=== PATIENT | male | born 1975 | race Caucasian/White ===

== ENCOUNTER 2017-02-19 03:52 | Emergency (ER) | payer MEDICAID ==
[2017-02-19 04:05] VITALS: BP 157/100
--- OUTSIDE RECORDS SUMMARY | 2017-02-19 04:08 | XMS REPORT | Continuity of Care Document ---
:1975 Author Organization [facility] ([facility]) Address [address] [place] [address] Phone [phone] Care Team Providers Name Role Phone Keegan Nick Primary Care Provider [phone] Source Comments This disclosure is being made pursuant to the Care Everywhere program, applicable federal and state laws, and may not contain all informaitonavailable regarding this patient.[facility] ([facility]) Active Allergies and Adverse Reactions Not on File Current Medications Not on file Active Problems Not on file Social History Tobacco Use Types Packs/Day Years Used Date Never Assessed Plan of Care Health Maintenance Due Date Last Done Comments Hepatitis B Vaccine (1 of 3 - Primary Series) 1975 Tdap Vaccine 01/06/1987 Lipid Disorder Screening 01/06/1994 MMR Vaccine 01/06/1994 Td Vaccine 01/06/1994 Influenza Vaccine: Seasonal (#1) 05/08/2016 Results from Last 3 Months Not on file
== END 2017-02-19 04:07 | disposition left against medical advice (07) ==
LOC: ER 03:52
DX: Z53.21 Procedure and treatment not carried out due to patient leaving prior to being seen by health care provider (principal)